=== PATIENT | male | born 1975 | race Caucasian/White ===

== ENCOUNTER 2018-11-22 17:45 | Emergency (ER) | payer OTHER ==
[~2018-11-22] VITALS: Ht 188 cm; Wt 97.5 kg
[2018-11-22] MEDS ORDERED: CELEBREX50 MG PO (17:53)
[2018-11-22] MEDS ORDERED: VALTREX1000 MG PO (17:53)
[2018-11-22 18:47] LABS: HEMATOCRIT 45.3 % (42.0-52.0); HEMOGLOBIN 15.4 gm/dL (14.0-18.0); MCH 31.3 pg (26.0-34.0); MCHC 34.1 g/dL (28.0-37.0); MCV 91.9 fL (80.0-100.0); PLATELET COUNT 265 thou/uL (150-400); RBC 4.93 mil/uL (4.50-6.00); RDW 12.2 % (10.5-14.5); WBC 8.1 thou/uL (4.0-11.0)
[2018-11-22 18:52] LABS: CALCIUM 9.7 mg/dL (8.5-10.1); CREATININE 1.2 mg/dL (0.7-1.3); POTASSIUM 3.8 mmol/L (3.5-5.1)
[2018-11-22 18:58] LABS: ALBUMIN 4.1 g/dL (3.4-5.0); DIRECT BILIRUBIN 0.1 mg/dL (<0.1-0.3); TOTAL BILIRUBIN 0.7 mg/dL (<0.1-1.0); TOTAL PROTEIN 8.6 g/dL (6.4-8.2)
[2018-11-22 19:46] LABS: ABSOLUTE NEUTROPHILS 6.8 thou/uL (1.4-8.2); ANISOCYTOSIS 1+
[2018-11-22] MEDS ORDERED: AZITHROMYCIN250 MG PO (19:50)
[2018-11-22 20:50] VITALS: BP 137/82
--- NOTE | 2018-11-23 12:54 | EKG ---
[address] [address] ELECTROCARDIOGRAM REPORT Name: YVONNE CARRASQUILLO Room #: [facility] CLEAR[facility]endra#: [id number] ������������������ Admission: 11/22/18 ������������������ Attend Phys: Discharge: 11/22/18 ������������������ Date of : 71 Report #: [id number] ����������������������������������������������������������������� [id number] THIS REPORT FOR: //name// [facility] ED Test Date: 2018-11-22 Test Time: 18:08:25 Pat Name: YVONNE CARRASQUILLO Department: Room: Gender: M Hardware Design Engineer: : 1975 Requested By: Dinh Elliott Order Number: [id number] MD: Ke Nix Measurements Intervals [place] Rate: 79 P: 6 NE: 127 QRS: -9 QRSD: 90 T: -1 QT: 364 QTc: 418 Interpretive Statements Sinus rhythm Normal tracing No previous ECG available for comparison Electronically Signed On 11-23-2018 12:54:16 CDT by Ke Nix [email or web address] ��������������������������������������������� <ELECTRONICALLY SIGNED> ���������������������������������������� By: Ke Nix MD, [facility] ��������������������������������������������� 11/23/18 1254 1808 1808 Ke Nix MD, FACC /EPI
== END 2018-11-22 21:10 | disposition home or self-care (01) ==
LOC: ER 17:45
PROVIDERS: Emergency Medicine
DX: J18.9 Pneumonia, unspecified organism (principal)